=== PATIENT | male | born 1950 | race Caucasian/White ===

== ENCOUNTER 2016-08-15 11:16 | Outpatient (RCR) | payer BC, OTHER | END 2016-11-13 | disposition home or self-care (01) | LOC: ONC 11:16 | PROVIDERS: ATTEND Radiology Radiation Oncology | DX: C61 Malignant neoplasm of prostate (principal) | CPT/HCPCS: 99214 ==

== ENCOUNTER 2017-03-01 09:28 | Outpatient (RCR) | payer BC, OTHER ==
[2017-01-09 10:49] LABS: BILIRUBIN,URINE NEGATIVE (NEGATIVE); KETONES,URINE NEGATIVE (NEGATIVE); LEUKOCYTE ESTERASE ,URINE 1+ (NEGATIVE); NITRITE,URINE NEGATIVE (NEGATIVE); PH,URINE 6 (5-9); PROTEIN,URINE NEGATIVE (NEGATIVE); UROBILINOGEN,URINE NORMAL (NORMAL)
[2017-01-09 10:58] LABS: WBC,URINE 0-2 /HPF
== END 2017-03-18 | disposition home or self-care (01) ==
LOC: ONC 09:28
PROVIDERS: ATTEND Radiology Radiation Oncology
DX: Z51.0 Encounter for antineoplastic radiation therapy (principal); C61 Malignant neoplasm of prostate
CPT/HCPCS: 77300; 77301; 77307; 77334; 77336; 77338; 77385; 81000

== ENCOUNTER 2017-09-10 13:22 | Outpatient (RCR) | payer BC, MEDICARE, OTHER | END 2017-12-09 | disposition home or self-care (01) | LOC: ONC 13:22 | PROVIDERS: ATTEND Radiology Radiation Oncology | DX: C61 Malignant neoplasm of prostate (principal) | CPT/HCPCS: 36415; 77300; 84153; 99213 ==